=== PATIENT | male | born 1945 | race Caucasian/White ===

== ENCOUNTER 2017-07-31 13:50 | Inpatient (IN) | payer MEDICARE, OTHER ==
[~2017-07-31] VITALS: Ht 185.4 cm; Wt 99.8 kg
[2017-08-14] MEDS ORDERED: SIMV80TA2 PO (10:16)
[2017-08-14] MEDS ORDERED: NAPR220C15 PO (10:17)
[2017-08-14] MEDS ORDERED: MAGN400C PO (10:18)
[2017-08-14] MEDS ORDERED: CHOL10002 PO (10:19)
[2017-08-14] MEDS ORDERED: SILD50TA PO (10:21)
[2017-08-14 11:39] LABS: BASOPHILS % (AUTO) 0.5 % (0-1); EOSINOPHILS # (AUTO) 0.1 X10'3 (0-0.9); LYMPHOCYTES # (AUTO) 1.2 X10'3 (1.1-4.8); LYMPHOCYTES % (AUTO) 21.2 % (21-51); MEAN CORPUSCULAR HEMOGLOBIN 33.1 PG (27.0-31.0); MEAN CORPUSCULAR HGB CONC 34.2 % (33.0-36.5); MEAN CORPUSCULAR VOLUME 96.9 FL (78-98); MEAN PLATELET VOLUME 9.3 FL (7.4-10.4); MONOCYTES # (AUTO) 0.4 X10'3 (0-0.9); NEUTROPHILS # (AUTO) 3.8 X10'3 (1.8-7.7); NEUTROPHILS % (AUTO) 69.3 % (42-75); PRE OP HEMATOCRIT 44.9 % (42.0-52.0); PRE OP HEMOGLOBIN 15.3 g/dL (14.0-17.9); PRE OP PLATELET COUNT 185 X10'3 (140-440); RED BLOOD COUNT 4.63 X10'6 (4.70-6.10); RED CELL DISTRIBUTION WIDTH 14.1 % (11.5-14.5)
[2017-08-14 11:54] LABS: ALBUMIN 3.8 G/DL (3.4-5.0); ALBUMIN/GLOBULIN RATIO 1.2 (1.1-1.5); ALKALINE PHOSPHATASE 60 IU/L (46-116); BLOOD UREA NITROGEN 13 MG/DL (7-18); BUN/CREATININE RATIO 16.3 (5.4-32.0); CALCIUM 8.8 MG/DL (8.5-10.1); CHLORIDE 105 MMOL/L (99-107); PRE OP ALT 29 U/L (30-65); PRE OP ANION GAP 7 (8-16); PRE OP AST 20 U/L (10-37); PRE OP BILIRUB, TOTAL 0.8 MG/DL (0.0-1.0); PRE OP GLUCOSE 95 MG/DL (70-104); PRE OP POTASSIUM 4.6 MMOL/L (3.4-5.1); PRE OP SODIUM 141 MMOL/L (135-145); TOTAL CARBON DIOXIDE 29.1 MMOL/L (24-32); TOTAL PROTEIN 6.9 G/DL (6.4-8.2); eGFR > 90 ML/MIN
[2017-08-17] MEDS ORDERED: ASPI81TA52 PO (13:14)
[2017-08-17] MEDS ORDERED: MULT-38 PO (13:20)
[2017-08-18] VITALS (16 sets, daily range): BP systolic 90–143; BP diastolic 63–92
[2017-08-18] MEDS ORDERED: ringers solution, lacted 1,000 ML IV SCH ×2 (05:00→10:08)
[2017-08-18] MEDS ORDERED: tranexamic acid inj. 1,000 MG in normal saline 100ml IV soln 90 ML IV ONE ×6 (05:30→11:20)
[2017-08-18] MEDS ORDERED: ceFAZolin inj. 2,000 MG in normal saline 100ml IV soln 100 ML IV ONE (05:30)
[2017-08-18] MEDS ORDERED: VANCOMYCIN INJ 1000 MG in NORMAL SALINE 250ml IV.SOLN IV ONE (05:30)
[2017-08-18] MEDS ORDERED: famotidine 20mg tablet PO ONE (05:30)
[2017-08-18] MEDS ORDERED: fentaNYL/PF 50MCG/1 ML 2ML syringe IV PRN ×2 (10:10)
[2017-08-18] MEDS ORDERED: morphine 4 MG/ML inj SYRINge IV PRN ×2 (10:10)
[2017-08-18] MEDS ORDERED: labetalol 20mg/4ml (5mg/ml) syringe IV PRN (10:10)
[2017-08-18] MEDS ORDERED: hydrALAZINE 20mg/ml inj. IV PRN (10:10)
[2017-08-18] MEDS ORDERED: ondansetron/PF 4mg/2ml inj IV PRN ×2 (10:10→14:10)
[2017-08-18] MEDS ORDERED: ROPIVAcaine 0.5% (5mg/ml) 30ml vial ONE ×2 (10:31→12:13)
[2017-08-18 11:25] LABS: PRE OP PROTIME 10.7 SECONDS (9.0-12.0)
[2017-08-18] MEDS ORDERED: LIDOcaine 2% (20mg/ml) 5ml vial ONE (11:28)
[2017-08-18] MEDS ORDERED: propofol inj 20 ML IV ONE (11:28)
[2017-08-18] MEDS ORDERED: propofol inj 0 ML IV ONE (11:28)
[2017-08-18] MEDS ORDERED: fentaNYL/PF 50MCG/1 ML 2ML syringe ONE (11:28)
[2017-08-18] MEDS ORDERED: midazolam 2 mg/2 ml injection ONE (11:28)
[2017-08-18] MEDS ORDERED: ePHEDrine 50MG/ML INJ. ONE (11:30)
[2017-08-18] MEDS ORDERED: sevoflurane 250ml liquid IH ONE (11:30)
[2017-08-18] MEDS ORDERED: ketorolac trometh. 30mg/ml inj. ONE (12:13)
[2017-08-18] MEDS ORDERED: vancomycin 1,000mg inj ONE (13:02)
[2017-08-18] MEDS: potassium cl 20mEq in 1/2 NS 1,000 ML IV SCH ×2 (14:09→22:09)
[2017-08-18] MEDS ORDERED: oxyCODONE IR 5mg (immed. release) tablet PO PRN ×2 (14:10)
[2017-08-18] MEDS ORDERED: magnesium hydroxide 30ml (MOM) UD suspension PO PRN (14:10)
[2017-08-18] MEDS ORDERED: HYDROmorphone inj. 0.5 MG/0.5 ML DISP.SYRIN IV PRN ×2 (14:10)
[2017-08-18] MEDS ORDERED: bisacodyl 10mg suppository rectal RC PRN (14:10)
[2017-08-18] MEDS ORDERED: diphenhydrAMINE 25mg capsule PO PRN ×2 (14:10)
[2017-08-18] MEDS ORDERED: acetaminophen 325mg tablet PO PRN (14:10)
[2017-08-18] MEDS: ceFAZolin inj. 1,000 MG in normal saline 100ml IV soln 100 ML IV SCH ×2 (16:32→23:52)
[2017-08-18] MEDS ORDERED: tranexamic acid inj. 1,000 MG in normal saline 100ml IV soln 100 ML IV ONE (17:00)
[2017-08-18] MEDS ORDERED: vancomycin/NS 1 GM ADD-VANTAGE 250 ML IV SCH (20:00)
[2017-08-18] MEDS: ketorolac tromethamine 15mg/ml inj. IV SCH (20:58)
[2017-08-18] MEDS: gabapentin 300mg capsule PO SCH (20:59)
[2017-08-18] MEDS: acetaminophen 325mg tablet PO SCH (20:59)
[2017-08-18] MEDS ORDERED: sennosides 8.6mg tablet PO SCH (21:00)
[2017-08-18] MEDS ORDERED: NAPROXEN SODIUM 220 MG PO SCH (21:00)
[2017-08-19] MEDS: ketorolac tromethamine 15mg/ml inj. IV SCH ×2 (01:56→08:06)
[2017-08-19] MEDS: acetaminophen 325mg tablet PO SCH ×3 (01:57→08:07)
[2017-08-19 02:00] VITALS: BP 96/59
[2017-08-19 02:23] VITALS: BP 108/69
[2017-08-19 05:00] VITALS: BP 100/62
[2017-08-19] MEDS: potassium cl 20mEq in 1/2 NS 1,000 ML IV SCH (06:09)
[2017-08-19] MEDS ORDERED: vitamin D (cholecalciferol) 1,000 unit tablet PO SCH (08:00)
[2017-08-19] MEDS ORDERED: atorvastatin 10mg tablet PO SCH (08:00)
[2017-08-19] MEDS ORDERED: aspirin 81mg tablet.DR PO SCH (08:00)
[2017-08-19] MEDS ORDERED: multivitamins, therapeutics tablet PO SCH (08:00)
[2017-08-19] MEDS ORDERED: magnesium oxide 400mg tablet PO SCH (08:00)
[2017-08-19] MEDS: gabapentin 300mg capsule PO SCH (08:06)
[2017-08-19 08:13] LABS: BASOPHILS % (AUTO) 0 % (0-1); EOSINOPHILS # (AUTO) 0.3 X10'3 (0-0.9); EOSINOPHILS % (AUTO) 1.6 % (0-6); HEMATOCRIT 40.7 % (42.0-52.0); HEMOGLOBIN 13.7 g/dl (14.0-17.9); LYMPHOCYTES # (AUTO) 0.7 X10'3 (1.1-4.8); LYMPHOCYTES % (AUTO) 4.4 % (21-51); MEAN CORPUSCULAR HEMOGLOBIN 32.8 PG (27.0-31.0); MEAN CORPUSCULAR HGB CONC 33.8 % (33.0-36.5); MEAN PLATELET VOLUME 9.5 FL (7.4-10.4); MONOCYTES # (AUTO) 0.8 X10'3 (0-0.9); MONOCYTES % (AUTO) 5.3 % (2-12); NEUTROPHILS % (AUTO) 88.7 % (42-75); PLATELET COUNT 189 X10'3 (140-440); RED CELL DISTRIBUTION WIDTH 13.9 % (11.5-14.5); WHITE BLOOD COUNT 15.8 X10'3 (4.5-11.0)
[2017-08-19 08:50] LABS: ANION GAP 11 (8-16); CHLORIDE 105 MMOL/L (99-107); POTASSIUM 4.2 MMOL/L (3.5-5.1); SODIUM 139 MMOL/L (135-145); TOTAL CARBON DIOXIDE 23.3 MMOL/L (24-32)
[2017-08-19 10:00] VITALS: BP_SYST 54
[2017-08-19] MEDS ORDERED: celeCOXIB 100mg capsule PO SCH (20:00)
[2017-08-20] MEDS ORDERED: acetaminophen 325mg tablet PO PRN (14:10)
== END 2017-08-19 10:48 | disposition home or self-care (01) | DRG 483 ==
LOC: EDSTATUS 13:50 → PAS IN 08-18 08:09 → EDSTATUS 08-18 15:00 → ORTHO 4S 08-18 15:11
PROVIDERS: ADMIT Orthopaedic Surgery; ATTEND Orthopaedic Surgery
PROC: 0LS40ZZ Reposition Left Upper Arm Tendon, Open Approach (ICD-10-PCS; 2017-08-18)
PROC: 3E0T3BZ Introduction of Anesthetic Agent into Peripheral Nerves and Plexi, Percutaneous Approach (ICD-10-PCS; 2017-08-18)
PROC: 0RRK00Z Replacement of Left Shoulder Joint with Reverse Ball and Socket Synthetic Substitute, Open Approach (ICD-10-PCS; principal; 2017-08-18 11:20)
DX: M19.012 Primary osteoarthritis, left shoulder (principal); I48.2 Chronic atrial fibrillation; D62 Acute posthemorrhagic anemia; M75.122 Complete rotator cuff tear or rupture of left shoulder, not specified as traumatic; M75.22 Bicipital tendinitis, left shoulder; E78.5 Hyperlipidemia, unspecified; M65.812 Other synovitis and tenosynovitis, left shoulder; Z79.82 Long term (current) use of aspirin; Z79.899 Other long term (current) drug therapy
CPT/HCPCS: 36415; 80051; 80053; 85025; 85610; 85730; 87070; 97116; 97162; A4565; A6253; A6449; A7000; J0690; J1885; J2001; J2250; J2704; J2795; J3010; J3370; J7030; J7120

== ENCOUNTER 2018-06-21 11:47 | Inpatient (IN) | payer MEDICARE, OTHER ==
[~2018-06-21] VITALS: Ht 185.4 cm; Wt 104.0 kg
[~2018-06-21 11:47] MED LIST: ASPI81TA52 PO; CHOL10002 PO; MAGN400C PO; MULT-38 PO; NAPR220C15 PO; SILD50TA PO; SIMV80TA2 PO
[2018-06-21 12:27] LABS: BASOPHILS % (AUTO) 0.7 % (0-1); EOSINOPHILS % (AUTO) 0.7 % (0-6); HEMOGLOBIN 16.3 g/dl (14.0-17.9); LYMPHOCYTES # (AUTO) 1.1 X10'3 (1.1-4.8); LYMPHOCYTES % (AUTO) 16.6 % (21-51); MEAN CORPUSCULAR HEMOGLOBIN 32.8 PG (27.0-31.0); MEAN CORPUSCULAR VOLUME 96.4 FL (78-98); MEAN PLATELET VOLUME 8.7 FL (7.4-10.4); MONOCYTES # (AUTO) 0.5 X10'3 (0-0.9); MONOCYTES % (AUTO) 7.8 % (2-12); NEUTROPHILS % (AUTO) 74.2 % (42-75); PLATELET COUNT 219 X10'3 (140-440); RED BLOOD COUNT 4.98 X10'6 (4.70-6.10); RED CELL DISTRIBUTION WIDTH 13.6 % (11.5-14.5); WHITE BLOOD COUNT 6.8 X10'3 (4.5-11.0)
[2018-06-21 12:36] LABS: ALANINE AMINOTRANSFERASE 25 U/L (12-78); ALBUMIN 3.9 G/DL (3.4-5.0); ALBUMIN/GLOBULIN RATIO 1.1 (1.1-1.5); ALKALINE PHOSPHATASE 71 IU/L (46-116); ANION GAP 7 (8-16); ASPARTATE AMINO TRANSFERASE 19 U/L (10-37); BILIRUBIN,TOTAL 0.6 MG/DL (0.1-1.0); BLOOD UREA NITROGEN 15 MG/DL (7-18); BUN/CREATININE RATIO 16.9 (5.4-32.0); CALCIUM 9.1 MG/DL (8.5-10.1); CHLORIDE 106 MMOL/L (99-107); CREATININE 0.89 MG/DL (0.60-1.10); GLUCOSE 106 MG/DL (70-104); POTASSIUM 4.4 MMOL/L (3.5-5.1); SODIUM 143 MMOL/L (135-145); TOTAL PROTEIN 7.5 G/DL (6.4-8.2); eGFR 84 ML/MIN
[2018-06-21 12:37] LABS: INR 1.1 INR; PARTIAL THROMBOPLASTIN TIME 29 SECONDS (22-32); PROTHROMBIN TIME 10.7 SECONDS (9.0-12.0)
[2018-06-21] MEDS ORDERED: aspirin 81mg tab.chew PO ONE (14:50)
[2018-06-21] MEDS ORDERED: SILD20TA PO (15:29)
[2018-06-21] MEDS ORDERED: POTA99TA21 PO (15:29)
[2018-06-21] MEDS ORDERED: FLUT16SP2 BOTHNARES (15:37)
[2018-06-21] MEDS: normal saline 1000ml 1,000 ML IV SCH (15:58)
[2018-06-21] MEDS ORDERED: potassium Cl 40MEQ/NS 500ml 500 ML IV PRN ×2 (16:00)
[2018-06-21] MEDS ORDERED: magnesium 4gm in 100ml NS 100 ML IV PRN (16:00)
[2018-06-21] MEDS ORDERED: magnesium 2GM in 50ml NS 50 ML IV PRN (16:00)
[2018-06-21] MEDS ORDERED: magnesium Cl slow-release 64mg tablet PO PRN (16:00)
[2018-06-21] MEDS ORDERED: magnesium hydroxide 30ml (MOM) UD suspension PO PRN (16:00)
[2018-06-21] MEDS ORDERED: ondansetron/PF 4mg/2ml inj IV PRN (16:00)
[2018-06-21] MEDS ORDERED: HYDROcodone/acetaminophen 5mg/325mg tablet PO PRN (16:00)
[2018-06-21] MEDS ORDERED: morphine 4 MG/ML inj SYRINge IV PRN (16:00)
[2018-06-21] MEDS ORDERED: acetaminophen 325mg tablet PO PRN ×2 (16:00)
[2018-06-21] MEDS ORDERED: non-formulary drug (Fluticasone Propionate (Flonase) 2 SPRAYS) BOTHNARES PRN (16:00)
[2018-06-21] MEDS ORDERED: mag hydrox/Alum hydrox/simeth 30ml oral suspension PO PRN (16:00)
[2018-06-21] MEDS ORDERED: potassium Cl 20 mEq SR tablet PO PRN ×2 (16:00)
--- NOTE | 2018-06-21 18:43 | NUR ---
Patient in room ED [facility]. I have received report from ZHENG Perez and had the opportunity to ask questions and assume patient care.
[2018-06-21 19:00] VITALS: BP 146/83
[2018-06-21] MEDS: fluticasone nasal spray 16GM bottle NS SCH (20:00)
[2018-06-21] MEDS ORDERED: temazepam 15mg capsule PO PRN (21:00)
[2018-06-21] MEDS: heparin, porcine 5000 units/ml vial SQ SCH (22:22)
[2018-06-21] MEDS: aspirin 81mg tablet.DR PO SCH (22:23)
[2018-06-22] VITALS: BP 121/66
[2018-06-22] MEDS ORDERED: diltiazem-D5W 125mg/125ml 125 ML IV SCH (04:55)
[2018-06-22 04:56] LABS: BASOPHILS # (AUTO) 0.1 X10'3 (0-0.2); BASOPHILS % (AUTO) 0.9 % (0-1); EOSINOPHILS # (AUTO) 0.1 X10'3 (0-0.9); EOSINOPHILS % (AUTO) 1.8 % (0-6); HEMATOCRIT 43.4 % (42.0-52.0); HEMOGLOBIN 14.5 g/dl (14.0-17.9); LYMPHOCYTES # (AUTO) 1.9 X10'3 (1.1-4.8); LYMPHOCYTES % (AUTO) 30.8 % (21-51); MEAN CORPUSCULAR HEMOGLOBIN 32.4 PG (27.0-31.0); MEAN CORPUSCULAR HGB CONC 33.3 g/dL (33.0-36.5); MEAN CORPUSCULAR VOLUME 97.3 FL (78-98); MEAN PLATELET VOLUME 8.7 FL (7.4-10.4); MONOCYTES # (AUTO) 0.6 X10'3 (0-0.9); MONOCYTES % (AUTO) 9.5 % (2-12); NEUTROPHILS # (AUTO) 3.5 X10'3 (1.8-7.7); PLATELET COUNT 191 X10'3 (140-440); RED BLOOD COUNT 4.46 X10'6 (4.70-6.10); RED CELL DISTRIBUTION WIDTH 13.1 % (11.5-14.5); WHITE BLOOD COUNT 6.1 X10'3 (4.5-11.0)
[2018-06-22 05:12] LABS: ALANINE AMINOTRANSFERASE 23 U/L (12-78); ALKALINE PHOSPHATASE 58 IU/L (46-116); ANION GAP 7 (8-16); ASPARTATE AMINO TRANSFERASE 18 U/L (10-37); BILIRUBIN,TOTAL 0.6 MG/DL (0.1-1.0); BLOOD UREA NITROGEN 16 MG/DL (7-18); BUN/CREATININE RATIO 18.8 (5.4-32.0); CALCIUM 8.5 MG/DL (8.5-10.1); CHLORIDE 109 MMOL/L (99-107); CHOL/HDL RATIO 3.8 (0.00-4.99); CHOLESTEROL 162 MG/DL (0-200); CREATININE 0.85 MG/DL (0.60-1.10); GLUCOSE 89 MG/DL (70-104); HDL CHOLESTEROL 43 MG/DL (35-60); LDL CHOLESTEROL 90 MG/DL (50-100); MAGNESIUM 1.9 MG/DL (1.5-2.4); POTASSIUM 4.1 MMOL/L (3.5-5.1); SODIUM 143 MMOL/L (135-145); TOTAL CARBON DIOXIDE 27.4 MMOL/L (24-32); TOTAL PROTEIN 6.1 G/DL (6.4-8.2); TRIGLYCERIDES 224 MG/DL (20-135); eGFR 88 ML/MIN
[2018-06-22] MEDS: normal saline 1000ml 1,000 ML IV SCH ×2 (06:12→20:58)
--- NOTE | 2018-06-22 06:20 | NUR ---
Patient in room [facility]. I have received report from Hailee Emmanuel RN and had the opportunity to ask questions and assume patient care.
--- NOTE | 2018-06-22 06:34 | NUR ---
Problems reprioritized. Patient report given, questions answered & plan of care reviewed with ZHENG Camarena.
[2018-06-22 07:30] VITALS: BP 124/70
[2018-06-22] MEDS ORDERED: non-formulary drug (Simvastatin* (Zocor*) 1 TAB) PO SCH (08:00)
[2018-06-22] MEDS ORDERED: K and/or MAG REPLACEMENT MC SCH (08:00)
[2018-06-22] MEDS: atorvastatin 20mg tablet PO SCH (08:53)
[2018-06-22] MEDS: metoprolol tartrate 25mg tablet PO SCH ×2 (08:53→20:55)
[2018-06-22] MEDS: heparin, porcine 5000 units/ml vial SQ SCH (08:54)
[2018-06-22] MEDS: fluticasone nasal spray 16GM bottle NS SCH ×2 (08:55→20:00)
[2018-06-22 12:00] VITALS: BP 129/43
[2018-06-22 18:00] VITALS: BP 123/67
--- NOTE | 2018-06-22 18:30 | NUR ---
Problems reprioritized. Patient report given, questions answered & plan of care reviewed with Hailee Emmanuel RN.
--- NOTE | 2018-06-22 18:37 | NUR ---
Patient in room [facility]. I have received report from ZHENG Camarena and had the opportunity to ask questions and assume patient care. Addendum: 06/22/18 at 1837 by Mechelle Ambrocio RN Amended: Links added.
[2018-06-22] MEDS: apixaban 5mg tablet PO SCH (20:55)
[2018-06-22] MEDS: aspirin 81mg tablet.DR PO SCH (20:55)
[2018-06-23] VITALS: BP 102/62
[2018-06-23 05:58] LABS: BASOPHILS % (AUTO) 0.8 % (0-1); EOSINOPHILS # (AUTO) 0.1 X10'3 (0-0.9); EOSINOPHILS % (AUTO) 1.9 % (0-6); HEMATOCRIT 41.3 % (42.0-52.0); HEMOGLOBIN 13.6 g/dl (14.0-17.9); LYMPHOCYTES # (AUTO) 1.6 X10'3 (1.1-4.8); LYMPHOCYTES % (AUTO) 28.5 % (21-51); MEAN CORPUSCULAR HEMOGLOBIN 32.1 PG (27.0-31.0); MEAN CORPUSCULAR VOLUME 97.2 FL (78-98); MONOCYTES # (AUTO) 0.5 X10'3 (0-0.9); MONOCYTES % (AUTO) 8.7 % (2-12); NEUTROPHILS # (AUTO) 3.3 X10'3 (1.8-7.7); NEUTROPHILS % (AUTO) 60.1 % (42-75); PLATELET COUNT 184 X10'3 (140-440); RED BLOOD COUNT 4.25 X10'6 (4.70-6.10); RED CELL DISTRIBUTION WIDTH 13.5 % (11.5-14.5); WHITE BLOOD COUNT 5.5 X10'3 (4.5-11.0)
--- NOTE | 2018-06-23 06:19 | NUR ---
Problems reprioritized. Patient report given, questions answered & plan of care reviewed with ZHENG Solano.
--- NOTE | 2018-06-23 06:46 | NUR ---
Patient in room [facility]. I have received report from Hailee Emmanuel RN and had the opportunity to ask questions and assume patient care.
[2018-06-23 07:33] VITALS: BP 127/58
[2018-06-23 07:46] LABS: ALANINE AMINOTRANSFERASE 19 U/L (12-78); ANION GAP 10 (8-16); ASPARTATE AMINO TRANSFERASE 16 U/L (10-37); BILIRUBIN,TOTAL 0.5 MG/DL (0.1-1.0); BLOOD UREA NITROGEN 15 MG/DL (7-18); BUN/CREATININE RATIO 19.2 (5.4-32.0); CALCIUM 8.6 MG/DL (8.5-10.1); CHLORIDE 110 MMOL/L (99-107); CREATININE 0.78 MG/DL (0.60-1.10); GLUCOSE 85 MG/DL (70-104); MAGNESIUM 1.9 MG/DL (1.5-2.4); POTASSIUM 4.3 MMOL/L (3.5-5.1); SODIUM 143 MMOL/L (135-145); TOTAL PROTEIN 5.9 G/DL (6.4-8.2); eGFR > 90 ML/MIN
[2018-06-23 07:48] LABS: ALKALINE PHOSPHATASE 55 IU/L (46-116)
[2018-06-23] MEDS: metoprolol tartrate 25mg tablet PO SCH (09:06)
[2018-06-23] MEDS: apixaban 5mg tablet PO SCH (09:07)
[2018-06-23] MEDS: atorvastatin 20mg tablet PO SCH (09:07)
[2018-06-23 12:00] VITALS: BP 129/84
[2018-06-23] MEDS ORDERED: APIX5TAB3 PO (12:06)
[2018-06-23] MEDS ORDERED: METO25TA6 PO (13:36)
--- NOTE | 2018-06-23 15:00 | NUR ---
Pt discharged to home with all belongings in private vehicle, accompanied by . Discharge instructions and medications reviewed, Thad pop provided with instructions to give it to pharmacy when picking up new prescriptions. Pt instructed to follow up with Dr Meza in 1-2 weeks. IV DC'd, cannula intact. Tele monitor removed. Pt escorted to front lobby by PCT.
== END 2018-06-23 15:01 | disposition home or self-care (01) | DRG 312 ==
LOC: ER 11:48 → ED HOLD 15:58 → EDBEDREQ 18:25 → SUR 3N 19:00
PROVIDERS: ADMIT Internal Medicine; ATTEND Internal Medicine
DX: R55 Syncope and collapse (principal); G45.9 Transient cerebral ischemic attack, unspecified; I48.2 Chronic atrial fibrillation; E78.5 Hyperlipidemia, unspecified; E78.00 Pure hypercholesterolemia, unspecified; E78.1 Pure hyperglyceridemia; I34.0 Nonrheumatic mitral (valve) insufficiency; Z23 Encounter for immunization
CPT/HCPCS: 36415; 70030; 70544; 70551; 71045; 80053; 80061; 83735; 84484; 85025; 85610; 85730; 87070; 90662; 93005; 93306; 93880; 97116; 97161; 99285; G0378; J1644; J7030